=== PATIENT | male | born 1980 | race Caucasian/White ===

== ENCOUNTER 2017-12-10 19:06 | Emergency (ER) | payer SELFPAY ==
[~2017-12-10] VITALS: Ht 180.3 cm; Wt 100.0 kg
[2017-12-10 19:28] VITALS: BP 122/81
== END 2017-12-11 01:38 | disposition left against medical advice (07) ==
LOC: ER 19:06
DX: M79.662 Pain in left lower leg (principal); Z53.21 Procedure and treatment not carried out due to patient leaving prior to being seen by health care provider